=== PATIENT | male | born 1955 | race African-American/Black ===

== ENCOUNTER 2017-01-18 18:57 | Inpatient (IN) ==
[2017-01-18] MEDS ORDERED: SODIUM CHLORIDE 0.9% 1,000 ML IV STA (19:49)
[2017-01-18] MEDS ORDERED: cefTRIAXone 1,000 MG in SODIUM CHLORIDE 0.9% 100 ML IV STA (19:49)
[2017-01-18] MEDS ORDERED: cefTRIAXone 1,000 MG VIAL ONE (19:56)
[2017-01-18] MEDS ORDERED: SODIUM CHLORIDE 0.9% 100 ML IV ONE (19:57)
[2017-01-18 20:02] LABS: Basophils % 0.2 % (0.0-0.8); Eosinophils % 0.3 % (0.00-10.9); Hematocrit 35.5 VOL% (42.0-52.0); Hemoglobin 12.5 GM/DL (14.0-18.0); Immature Granulocytes % 4.3 %; Immature Granulocytes Absolute 0.44 #; Lymphocytes # 1.8 10*3/uL (1.4-4.0); Lymphocytes % 17.6 % (21.2-54.2); Mean Corpuscular HGB Conc 35.2 GM/DL (32-36); Mean Corpuscular Hemoglobin 32 PG (27-34); Mean Platelet Volume 9.2 FL (9.6-12.0); Monocytes # 1.4 10*3/uL (0.11-0.8); Monocytes % 13.4 % (1.7-12.7); Neutrophils # 6.6 10*3/uL (1.4-7.4); Neutrophils % 64.2 % (38.7-73.9); Platelet Count 282 T/CUMM (130-400); Red Cell Distribution Width 14.4 % (9.3-17.3); White Blood Count 10.3 T/CUMM (4-12)
[2017-01-18] MEDS ORDERED: ALBUTEROL/IPRATROPIUM 3 ML NEB RESP TX STA (20:02)
--- NOTE | 2017-01-18 20:07 | XRay Report ---
Portable chest. Indication: Cough and fever and dyspnea. Comparison: November 11, 2016. The heart is enlarged. The pulmonary vasculature is normal. There are scattered areas of atelectasis in the left lung base. The right lung is clear. No pneumothorax or pleural effusion. Degenerative changes of the spinal column and shoulders. Impression: Stable cardiomegaly. Development of areas of atelectasis in the left lung base. PROCEDURE INTERPRETED AT [facility] DEPARTMENT OF RADIOLOGY Final Report Signed by: Dr. Nasrin Tabares
[2017-01-18 20:12] LABS: Osmolality,Calculated 266.2 MOS/KG (273-304); Potassium 3.5 MMOL/L (3.5-5.1)
--- NOTE | 2017-01-18 20:35 | Emergency Department Note ---
Arrival - Arrival Chief Complaint: Upper Respiratory Stated Complaint: breathing and chilles ED Nursing Triage Note: Patient complains of shortness of breath, cough, fever and chills that has been going on for the past week. Denies nausea/vomiting. Denies prior treatment. Hx of HTN and renal failure. Mode of Arrival: Wheelchair Limitations: No Limitations Source: Patient Time Seen by Provider: 01/18/17 19:40 - History of Present Illness HPI Narrative: The patient complains of shortness of breath and cough for the past week or 2. Today he developed fever and chills as well. No rhinorrhea, sore throat, nausea , vomiting or other symptoms. He denies any chest pain. He is a smoker but denies any history of COPD. Allergies/Adverse Reactions: Allergies Allergy/AdvReac Type Severity Reaction Status Date / Time No Known Allergies Allergy Verified 04/08/16 07:12 Home Medications: Home Medications Medication Instructions Recorded Confirmed Type Atorvastatin [Lipitor] 40 mg PO BEDTIME #30 tablet 11/19/15 01/18/17 Rx Metoprolol Tartrate Tab [Lopressor 50 mg PO BID #60 tablet 11/19/15 01/18/17 Rx Tab] Aspirin Tab 325 mg PO QAM 11/11/16 01/18/17 History Hydrocodone/Acetaminophen [[place] 1 each PO Q6HR PRN #60 tablet 11/11/16 Rx 10-325 Tablet] Isosorbide Mononitrate [Isosorbide 30 mg PO QAM 11/11/16 01/18/17 History Mononitrate ER] Losartan Potassium 50 mg PO BID 11/11/16 01/18/17 History Nitroglycerin Sl Tab [Nitrostat] 0.4 mg SL Q5M PRN 11/11/16 01/18/17 History Pantoprazole Tab [Protonix Tab] 40 mg PO QAM 11/11/16 01/18/17 History Dexamethasone Tab [Decadron Tab] 40 mg PO Q7D 01/18/17 01/18/17 History Review of System - Review of System 12 point system: reviewed and no additional remarkable complaints except as stated - Review of System Constitutional: Present: chills, fever, weakness Head/Ears/Nose/Throat: Absent: nasal drainage, sore throat Respiratory: Present: cough, respiratory distress. Absent: wheezing Cardiovascular: Absent: chest pain Gastrointestinal: Absent: abdominal pain, nausea, vomiting Medical,Surgical,& Family Hx - Medical History Cardio: History of: CAD, Hypertension Neurology: History of: TIA Gastrointestinal: History of: Gastrointestinal Bleed Musculoskeletal: History of: Back/Neck Problems, Degenerative Disk Disease Other: History of: Cancer (multiple myeloma) - Surgical History Cardiac Surgeries: Sugical HX of: Cardiac Catheterization Thoracic Surgeries: Patient denies;: Organ Transplant Neurologic Surgeries: Patient denies: Neurologic Surgery Abdominal Surgeries: Patient denies: Abdominal Surgery - Family History Family History: Reports;: Family Diabetes (Mother), Family Hypertension (Mother , Sister) Denies;: Family Cancer Comment Only: Family Heart Disease (Mother, sister) - Social History Smoking Status: Current every day smoker Frequency of Alcohol Use: None Type of Drug Use: None Exam Physical Examination: GENERAL: Alert. No acute distress. HEENT: Normocephalic and atraumatic. There is no nasal drainage. No pharyngeal erythema or exudate. NECK: Normal inspection. Supple. No lymphadenopathy or meningismus. LUNGS: No respiratory distress. Rales in both bases. HEART: Regular rate and rhythm. ABDOMEN: Soft, nontender and nondistended with normoactive bowel sounds. BACK: Normal inspection. SKIN: Color normal. Warm and dry. EXTREMITIES: Nontender. Normal range of motion. No pedal edema. NEUROLOGICAL/PSYCHIATRIC: Alert and oriented -3 with normal mood and affect. Cranial nerves normal. No motor or sensory deficit. Vital Signs: Vital Signs Temperature 102.8 F H 01/18/17 19:11 Pulse Rate 89 01/18/17 20:35 Respiratory Rate 18 01/18/17 20:35 Blood Pressure 145/76 01/18/17 19:11 O2 Sat by Pulse Oximetry 99 01/18/17 20:35 Course - Reevaluation(s) Reevaluation #1: The patient has remained stable in the ER. He feels somewhat better after medications, however, he is still short of breath. His workup shows pneumonia. I discussed patient with the hospitalist service who will see him and admit. Time: 21:55 Results - Labs CBC & BMP: 01/18/17 19:15 01/18/17 19:15 Lab Results: I have reviewed the patients labs - Impressions Chest x-ray was read as areas of atelectasis in the left lung base. Disposition Clinical Impression: Pneumonia Case discussed with: patient Disposition: Still a Patient Condition: Stable Time of Disposition: 22:14
[2017-01-18] MEDS ORDERED: guaiFENesin/DM ER 600-30 MG TABLET PO PRN (22:30)
[2017-01-18] MEDS ORDERED: ACETAMINOPHEN 325 MG TABLET PO PRN (22:30)
[2017-01-18] MEDS ORDERED: ZALEPLON 5 MG CAPSULE PO PRN (22:30)
[2017-01-18] MEDS ORDERED: ONDANSETRON 4 MG/2 ML VIAL IV PRN (22:30)
[2017-01-18] MEDS ORDERED: DOCUSATE SODIUM 100 MG CAPSULE PO PRN (22:30)
[2017-01-18] MEDS ORDERED: ALBUTEROL/IPRATROPIUM 3 ML NEB RESP TX PRN (22:33)
--- NOTE | 2017-01-18 22:43 | Hospitalist History & Physical ---
Assessment and Plan - Time spent with patient Time spent with patient: Greater than 30 minutes (1) Pneumonia Status: Acute Assessment and plan: Admit to inpatient. Start Levaquin. Follow-up blood and sputum cultures. Lactic acid pending. Duo nebs and Mucinex added. Continue home medications. Further recommendations will depend on his response to therapy Current Visit: Yes Qualifiers: Pneumonia type: due to unspecified organism Laterality: bilateral Lung location: lower lobe of lung Qualified Code(s): J18.9 - Pneumonia, unspecified organism (2) IgG multiple myeloma Status: Chronic Assessment and plan: Consult Dr. Sanon Continue dexamethasone 40 mg weekly Current Visit: No (3) Hypertension Status: Chronic Assessment and plan: Continue home medications Current Visit: No Qualifiers: Hypertension type: essential hypertension Qualified Code(s): I10 - Essential (primary) hypertension (4) Coronary artery disease Status: Chronic Assessment and plan: Continue home medications Current Visit: No History of Present Illness Chief complaint: fever and chills with non productive cough History of present illness: Mr. Baird is a 61 year old male with a history of IgG kappa chain myeloma treated with Velcade and dexamethasone, presents to the emergency department with a complaint of fever and chills that began today and a nonproductive cough. The patient has felt ill over the last week but developed fever and chills today. He is accompanied by his and daughter in the emergency department. He reports some shortness of breath and mild discomfort in the lower parts of his chest. His chest x-ray in the emergency department reveals some atelectasis with infiltrate in the left base as well as a possible developing infiltrate in the right base. He denies any sick contacts or recent hospitalizations. No recent antibiotic use. He sees Dr. Sanon every 2 weeks for chemotherapy with Velcade. He denies any pain at this time. No nausea vomiting or diarrhea, no abdominal pain or other symptoms. Home medications were reviewed and reconciled. He is a full code. Home Medications Medication Instructions Recorded Confirmed Type Atorvastatin [Lipitor] 40 mg PO BEDTIME #30 tablet 11/19/15 01/18/17 Rx Metoprolol Tartrate Tab [Lopressor 50 mg PO BID #60 tablet 11/19/15 01/18/17 Rx Tab] Aspirin Tab 325 mg PO QAM 11/11/16 01/18/17 History Hydrocodone/Acetaminophen [[place] 1 each PO Q6HR PRN #60 tablet 11/11/16 Rx 10-325 Tablet] Isosorbide Mononitrate [Isosorbide 30 mg PO QAM 11/11/16 01/18/17 History Mononitrate ER] Losartan Potassium 50 mg PO BID 11/11/16 01/18/17 History Nitroglycerin Sl Tab [Nitrostat] 0.4 mg SL Q5M PRN 11/11/16 01/18/17 History Pantoprazole Tab [Protonix Tab] 40 mg PO QAM 11/11/16 01/18/17 History Dexamethasone Tab [Decadron Tab] 40 mg PO Q7D 01/18/17 01/18/17 History Allergies Allergy/AdvReac Type Severity Reaction Status Date / Time No Known Allergies Allergy Verified 04/08/16 07:12 Medical,Surgical,& Family Hx - Medical History Cardio: History of: CAD, Hypertension Neurology: History of: TIA Gastrointestinal: History of: Gastrointestinal Bleed Musculoskeletal: History of: Back/Neck Problems, Degenerative Disk Disease Hematology: History of: Hematologic Cancer (IgG kappa chain myeloma) Other: History of: Cancer (multiple myeloma) - Surgical History Cardiac Surgeries: Sugical HX of: Cardiac Catheterization Thoracic Surgeries: Patient denies;: Organ Transplant Neurologic Surgeries: Patient denies: Neurologic Surgery Abdominal Surgeries: Patient denies: Abdominal Surgery - Family History Family History: Reports;: Family Diabetes (Mother), Family Hypertension (Mother , Sister) Denies;: Family Cancer Comment Only: Family Heart Disease (Mother, sister) - Social History Smoking Status: Current every day smoker Have you smoked in the last 12 months: Yes Time spent discussing smoking cessation with patient: 3 to 10 minutes (4 min) Frequency of Alcohol Use: None Type of Drug Use: None Marital Status: Lives With:: Spouse Functional capacity: independent ambulation 12 point system: reviewed and no additional remarkable complaints except as stated - Constitutional Constitutional: Present: as per HPI, chills, fever(s), malaise - Respiratory Respiratory: Present: as per HPI, cough, dyspnea Exam - Constitutional Vitals: Period Temp Pulse Resp BP Sys/[place] Pulse Ox Last 24 Hr 102.8 F-102.8 F 89-99 18-22 145-145/76-76 95-99 Exam: Constitutional System: No distress. No tremulousness. Head: Normocephalic, atraumatic. Ears, Nose and Throat System: No pain or tenderness. No epistaxis or discharge Eyes System: Pupils equal, round, and reactive. Extraocular muscles intact. Neck: Supple, without adenopathy, No jugular venous distention. No thyromegaly, neck mass, or prior surgery apparent. Respiratory System: Chest rhonchi bilateral lower lobes to auscultation. Cardiovascular System: Heart with regular rate and rhythm. No murmur. GI System: Abdomen soft, nontender. Normo active bowel sounds present. Musculoskeletal System: limbs with no pedal edema. Full distal pulses. Normal capillary refill. Neurological System: No discernable sensory deficit. No aphasia Psychiatric System: Conversation is rational Results - Labs CBC & BMP: 01/18/17 19:15 01/18/17 19:15 Lab Results: I have reviewed the past 24 hour labs - Diagnostic Findings Procedure: Chest x-ray: image reviewed by me, report reviewed by me
[2017-01-18 22:50] LABS: Apearance,Urine CLEAR (Clear); Bilirubin,Urine Negative (Negative); Blood, Urine Small mg/dL (Negative); Glucose,Urine (UA) Negative (Negative); Ketones,Urine Negative (Negative); Mucus,Urine Occasional /LPF (Occasional); Nitrite,Urine Negative (Negative); Protein,Urine Negative; RBC,Urine 1 /HPF (0-4); Squamous Epithelial Cell,Urine Occasional /HPF (0-10); Urine Color Yellow (Yellow); Urine Specific Gravity 1.009 (1.001-1.035); Urine Urobilinogen < 2.0 EU/DL (0.2-1.0); WBC,Urine 40 /HPF (0-6)
[2017-01-18] MEDS: SODIUM CHLORIDE 0.9% 1,000 ML IV SCH (23:46)
[2017-01-18] MEDS ORDERED: NITROGLYCERIN SL 0.4 MG TABLET SL PRN (23:46)
[2017-01-18] MEDS: LEVOFLOXACIN INJ 750 MG in PREMIX 1 EACH IV SCH (23:47)
[2017-01-19] MEDS ORDERED: PNEUMOCOCCAL VACCINE (13 VALENT) 0.5 ML SYRINGE IM ONE (00:01)
[2017-01-19] MEDS: ALBUTEROL/IPRATROPIUM 3 ML NEB RESP TX SCH ×4 (00:25→19:44)
[2017-01-19 06:58] LABS: Basophils % 0.5 % (0.0-0.8); Eosinophils % 0.1 % (0.00-10.9); Hematocrit 37.3 VOL% (42.0-52.0); Hemoglobin 12.9 GM/DL (14.0-18.0); Immature Granulocytes % 3.6 %; Immature Granulocytes Absolute 0.32 #; Lymphocytes # 2.3 10*3/uL (1.4-4.0); Mean Corpuscular HGB Conc 34.6 GM/DL (32-36); Mean Corpuscular Hemoglobin 32 PG (27-34); Mean Corpuscular Volume 91.6 FL (87-102); Mean Platelet Volume 9.4 FL (9.6-12.0); Monocytes # 1.3 10*3/uL (0.11-0.8); Monocytes % 14.7 % (1.7-12.7); Neutrophils # 4.9 10*3/uL (1.4-7.4); Neutrophils % 55.1 % (38.7-73.9); Platelet Count 287 T/CUMM (130-400); Red Blood Count 4.07 MC/CUMM (3.8-5.5); Red Cell Distribution Width 14.6 % (9.3-17.3); White Blood Count 8.9 T/CUMM (4-12)
[2017-01-19 07:32] LABS: Calcium 8.2 MG/DL (8.5-10.1); Osmolality,Calculated 273.7 MOS/KG (273-304); Potassium 4.3 MMOL/L (3.5-5.1)
--- NOTE | 2017-01-19 08:32 | Hospitalist Progress Note ---
Assessment and Plan (1) IgG multiple myeloma Status: Chronic Assessment and plan: On active treatment with dexamethasone and Velcade Current Visit: No (2) Pneumonia Status: Acute Current Visit: Yes Qualifiers: Pneumonia type: due to unspecified organism Laterality: bilateral Lung location: lower lobe of lung Qualified Code(s): J18.9 - Pneumonia, unspecified organism (3) CAD (coronary artery disease) Status: Chronic Assessment and plan: Successful percutaneous intervention to the circumflex and obtuse marginal coronary arteries October 2015 Current Visit: No Qualifiers: Coronary Disease-Associated Artery/Lesion type: [place] artery [place] vs. transplanted heart: [place] heart Associated angina: without angina Qualified Code(s): I25.10 - Atherosclerotic heart disease of [place] coronary artery without angina pectoris Hospitalist: Subjective Interval history: 61-year-old male with an IgG kappa multiple myeloma on active treatment presented the emergency room with complaints of fever and chills with a nonproductive cough. Chest x-ray demonstrates linear atelectatic changes in the left base with no consolidative infiltrate. Overnight the patient was afebrile with stable vital signs. His white count remains normal his cough persists. Exam - Constitutional Vitals: Period Temp Pulse Resp BP Sys/[place] Pulse Ox Last 24 Hr 99.0 F-102.8 F 74-99 17-22 145-162/76-99 95-100 General appearance: over weight - Respiratory Respiratory exam: Present: clear to auscultation bilaterally. Absent: rales, rhonchi, wheezes - Cardiovascular Cardiovascular exam: Present: regular rate and rhythm - GI/Abdominal GI/Abdominal exam: Present: normal bowel sounds - Extremities Exam Extremities exam: Absent: edema - Neurological Exam Neurological exam: Present: alert, oriented X3 Results - Labs CBC & BMP: 01/19/17 05:41 01/19/17 05:41 - Diagnostic Findings Procedure: Chest x-ray: image reviewed by me (Discoid atelectasis left base)
[2017-01-19] MEDS ORDERED: DEXAMETHASONE 4 MG TABLET PO SCH (09:00)
[2017-01-19] MEDS: ASPIRIN 325 MG TABLET PO SCH (09:22)
[2017-01-19] MEDS: METOPROLOL TARTRATE 50 MG TABLET PO SCH ×2 (09:22→21:05)
[2017-01-19] MEDS: ISOSORBIDE MONONITRATE 30 MG TABLET PO SCH (09:22)
[2017-01-19] MEDS: PANTOPRAZOLE 40 MG TABLET PO SCH (09:22)
[2017-01-19] MEDS: LOSARTAN 50 MG TABLET PO SCH ×2 (09:22→21:05)
[2017-01-19] MEDS: ENOXAPARIN 40 MG/0.4 ML SYRINGE SUBCUT SCH (09:22)
--- NOTE | 2017-01-19 11:47 | Oncology Consult Note ---
History of Present Illness Chief complaint: Myeloma History of present illness: Mr. Baird is a 61 year old male who has IgG kappa myeloma first diagnosed in September 2015 at which time he had an IgG level of 5370 with a kappa free light chain level of 260. His most recent protein studies done at my office were performed on December 27, 2016 at which time he had an M spike of 1 g/dL or 13.1% with an IgG level of 1640 and a kappa free light chain level of 12.33 mg/dL. Unfortunately he lost insurance for some time and had been off chemotherapy for several months earlier this year before regaining any count of insurance coverage. He is currently on dexamethasone 40 mg weekly along with Velcade 2.5 mg subcu weekly, which was only started on January 03, 2017. He continues to have significant bone pain including back pain and rib pain. He has not had Zometa in quite some time and I am going to go ahead and order it while he is here. I am also going to recheck protein studies while he is here. He was admitted at this time with pneumonia and has been started on Levaquin. Past medical history: No known allergies. He has a history of hypertension as well as degenerative disc disease, coronary artery disease, TIA, acute myocardial infarct, chronic renal failure that has resolved, hyperlipidemia and spinal compression fractures. Family history is positive for cancer of unknown type in a brother and in his father. His father has diabetes mellitus and so does his mother. His mother has hypertension and coronary artery disease. One sister has renal disease and coronary artery disease and hypertension. ROS Gen.: Positive for fatigue. Negative for weight loss or weight gain. Negative for fever. Eyes: No history of chronic disease, infections or visual loss. ENT: No history of chronic infections, epistaxis, chronic sore throat Lungs: Positive for hacking cough. No history of asthma, emphysema, hemoptysis , chronic pleurisy or long-term or chronic infections Cardiovascular: No history of recent angina or arrhythmias or cardiac events. GI: No history of upper or lower GI bleeding, melena, dysphagia, odynophagia, liver disease, gallbladder disease or pancreatic disease. : No history of kidney stones, chronic kidney infections or hematuria. Musculoskeletal: Positive for back pain, primarily lumbar and also for bone and joint aches and pains. Neurologic: No history of seizures, convulsions or paralysis. Psychiatric: No history of chronic psychiatric illness or psychiatric medications. Lymphatic: No history of significant or long-term lymphadenopathy Hematologic: Positive for anemia and leukopenia. Negative for lymphadenopathy. Skin: No history of chronic skin infections or rashes or significant skin lesions. Physical examination: General: He appears to be acutely ill and tachypneic. Eyes: Lids and conjunctive are normal. ENT: His oral mucosa and pharynx are normal. His hearing is normal. Neck: His trachea is midline and he has no neck masses. Lungs: He has scattered rales, more on the left side than the right. He has chest wall tenderness to palpation. Cardiovascular: His heart rhythm is regular without murmur, gallop or rub. There is no jugular venous distention, clubbing or cyanosis. Abdomen: He has mild generalized abdominal tenderness but most of it is in the area just below his rib cage. Musculoskeletal: Decreased range of motion in his back. Generalized bone tenderness. Neurologic: Cranial nerves II through XII are intact. The no focal neurologic deficits. Nodes: There is no submandibular, cervical, supraclavicular or axillary adenopathy. Psychiatric: He is oriented to time, place, person and situation with normal mood and affect. Impression: IgG kappa myeloma undergoing active treatment. White cell count on this admission is 10,300 with a very minimal anemia with a hemoglobin of 12.5. The platelet count is normal 282,000. His serum creatinine is 1.3, which is normal. Serum calcium is 8.0. He has not had a comprehensive metabolic profile. This would be a prudent thing to do to assess anyone with a a malignancy on chemotherapy so I am going to go ahead and order one. I will follow him with you. Home Medications Medication Instructions Recorded Confirmed Type Atorvastatin [Lipitor] 40 mg PO BEDTIME #30 tablet 11/19/15 01/19/17 Rx Metoprolol Tartrate Tab [Lopressor 50 mg PO BID #60 tablet 11/19/15 01/19/17 Rx Tab] Aspirin Tab 325 mg PO QAM 11/11/16 01/19/17 History Hydrocodone/Acetaminophen [[place] 1 each PO Q6HR PRN #60 tablet 11/11/16 Rx 10-325 Tablet] Isosorbide Mononitrate [Isosorbide 30 mg PO DAILY 11/11/16 01/19/17 History Mononitrate ER] Losartan Potassium 50 mg PO BID 11/11/16 01/19/17 History Nitroglycerin Sl Tab [Nitrostat] 0.4 mg SL Q5M PRN 11/11/16 01/19/17 History Pantoprazole Tab [Protonix Tab] 40 mg PO QAM 11/11/16 01/19/17 History Dexamethasone Tab [Decadron Tab] 40 mg PO Q7D 01/18/17 01/19/17 History Allergies Allergy/AdvReac Type Severity Reaction Status Date / Time No Known Allergies Allergy Verified 04/08/16 07:12 Medical,Surgical,& Family Hx - Medical History Cardio: History of: CAD, Hypertension Neurology: History of: TIA Gastrointestinal: History of: Gastrointestinal Bleed Musculoskeletal: History of: Back/Neck Problems, Degenerative Disk Disease Hematology: History of: Hematologic Cancer (IgG kappa chain myeloma) Other: History of: Cancer (multiple myeloma) - Surgical History Cardiac Surgeries: Sugical HX of: Cardiac Catheterization Thoracic Surgeries: Patient denies;: Organ Transplant Neurologic Surgeries: Patient denies: Neurologic Surgery Abdominal Surgeries: Patient denies: Abdominal Surgery - Family History Family History: Reports;: Family Diabetes (Mother), Family Hypertension (Mother , Sister) Denies;: Family Cancer Comment Only: Family Heart Disease (Mother, sister) - Social History Smoking Status: Current every day smoker Frequency of Alcohol Use: None Type of Drug Use: None Exam - Constitutional Vitals: Period Temp Pulse Resp BP Sys/[place] Pulse Ox Last 24 Hr 99.0 F-102.8 F 6-99 16-22 145-162/76-99 95-100 Results - Labs CBC & BMP: 01/19/17 05:41 01/19/17 05:41
[2017-01-19] MEDS ORDERED: ZOLEDRONIC ACID 4 MG in PREMIX 1 EACH IV ONE (11:55)
[2017-01-19 12:27] LABS: Total Protein 6.6 G/DL (6.4-8.3)
[2017-01-19] MEDS: ATORVASTATIN 40 MG TABLET PO SCH (21:05)
[2017-01-19] MEDS: LEVOFLOXACIN INJ 750 MG in PREMIX 1 EACH IV SCH (23:08)
[2017-01-19] MEDS: SODIUM CHLORIDE 0.9% 1,000 ML IV SCH (23:14)
[2017-01-20] MEDS: ALBUTEROL/IPRATROPIUM 3 ML NEB RESP TX SCH ×4 (01:24→20:43)
[2017-01-20 04:22] LABS: Immunoglobulin A (Chem) 179 MG/DL (70-400); Immunoglobulin G (Chem) 1210 MG/DL (700-1600); Immunoglobulin M (Chem) 37 MG/DL (40-230); Total Protein (Chem) 6.6 G/DL (6.4-8.3)
[2017-01-20] MEDS: SODIUM CHLORIDE 0.9% 1,000 ML IV SCH (05:27)
[2017-01-20 06:52] LABS: Albumin (SPE) 3.8 G/DL (3.2-5.3); Albumin (SPE) Rel % 57.9 %; Alpha 1 (SPE) 0.2 G/DL (0.1-0.4); Alpha 1 (SPE) Rel % 3.1 %; Alpha 2 (SPE) 0.7 G/DL (0.4-1.0); Alpha 2 (SPE) Rel % 10.5 %; Beta (SPE) 0.8 G/DL (0.5-1.1); Beta (SPE) Rel % 11.3 %; Gamma (SPE) 1.1 G/DL (0.7-1.7)
[2017-01-20 06:53] LABS: Gamma (SPE) Rel % 17.2 %
[2017-01-20 07:22] LABS: Bilirubin,Total 0.5 MG/DL (0.2-1.0); Calcium 8.5 MG/DL (8.5-10.1); Osmolality,Calculated 277.5 MOS/KG (273-304); Potassium 4.1 MMOL/L (3.5-5.1); Total Protein 6.5 G/DL (6.4-8.3)
--- NOTE | 2017-01-20 08:15 | Oncology Progress Note ---
Oncology Subjective PN Interval history: Patient with IgG kappa myeloma admitted with pneumonia. He received Zometa yesterday. He is on antibiotics for pneumonia. He has significant bone pain from the myeloma. Protein studies have been done in some of the results are pending. He has an IgG kappa monoclonal spike and myeloma. The patient has an IgG level of 1210 with an IgA of 179 and a low IgM of 37. The free light chain levels in the serum are pending. The patient's M spike 0.6 g/dL or 9.5%. He continues to have back pain and chest wall pain. I am not surprised. His back pain may never completely clear. It is the most common complaint among patients who have myeloma. I have instructed him to come by my office next week. He already has an appointment to continue chemotherapy at that time and he could go home anytime that you are ready. I am stonework tracer this weekend and I will continue to check on him. On physical examination he appears somewhat acutely ill as well as chronically ill. Lids and conjunctive are normal. His neck is normal and his trachea is midline. His breath sounds are slightly coarse and he has a few scattered dependent rales but no loud wheezing or evidence of extensive pulmonary congestion. Heart sounds are normal. Cranial nerves II through XII are intact. There are no focal neurologic deficits. Exam - Constitutional Vitals: Period Temp Pulse Resp BP Sys/[place] Pulse Ox Last 24 Hr 97.1 F-98.1 F 6-70 16-20 130-144/74-85 92-99 Results - Labs CBC & BMP: 01/19/17 05:41 01/20/17 06:24
--- NOTE | 2017-01-20 08:21 | Hospitalist Progress Note ---
Assessment and Plan (1) IgG multiple myeloma Status: Chronic Assessment and plan: On active treatment with dexamethasone and Velcade Current Visit: No (2) Pneumonia Status: Acute Assessment and plan: Possible viral bronchitis rather than bacterial pneumonia Current Visit: Yes Qualifiers: Pneumonia type: due to unspecified organism Laterality: bilateral Lung location: lower lobe of lung Qualified Code(s): J18.9 - Pneumonia, unspecified organism (3) CAD (coronary artery disease) Status: Chronic Assessment and plan: Successful percutaneous intervention to the circumflex and obtuse marginal coronary arteries October 2015 Current Visit: No Qualifiers: Coronary Disease-Associated Artery/Lesion type: [place] artery [place] vs. transplanted heart: [place] heart Associated angina: without angina Qualified Code(s): I25.10 - Atherosclerotic heart disease of [place] coronary artery without angina pectoris Hospitalist: Subjective Interval history: 61-year-old male with an IgG kappa multiple myeloma on treatment and presented emergency room with complaints of fever chills and a nonproductive cough. His chest x-ray demonstrates linear basilar atelectasis predominantly at the left base with no consolidation. He continues to be afebrile and states that his breathing is better. Vital signs were stable overnight. Exam - Constitutional Vitals: Period Temp Pulse Resp BP Sys/[place] Pulse Ox Last 24 Hr 97.1 F-98.1 F 6-70 16-20 130-144/74-85 92-99 General appearance: over weight - Respiratory Respiratory exam: Present: wheezes (New this a.m., minimal at forced expiration) . Absent: rales, rhonchi - Cardiovascular Cardiovascular exam: Present: regular rate and rhythm - GI/Abdominal GI/Abdominal exam: Present: normal bowel sounds - Extremities Exam Extremities exam: Absent: edema - Neurological Exam Neurological exam: Present: alert, oriented X3 Results - Labs CBC & BMP: 01/19/17 05:41 01/20/17 06:24 Labs: Liver panel was normal Initial pyuria on urinalysis thus far shown no growth.
[2017-01-20] MEDS: ISOSORBIDE MONONITRATE 30 MG TABLET PO SCH (08:56)
[2017-01-20] MEDS: PANTOPRAZOLE 40 MG TABLET PO SCH (08:56)
[2017-01-20] MEDS: LOSARTAN 50 MG TABLET PO SCH ×2 (08:56→20:02)
[2017-01-20] MEDS: ASPIRIN 325 MG TABLET PO SCH (08:56)
[2017-01-20] MEDS: METOPROLOL TARTRATE 50 MG TABLET PO SCH ×2 (08:56→20:02)
[2017-01-20] MEDS: ENOXAPARIN 40 MG/0.4 ML SYRINGE SUBCUT SCH (08:57)
[2017-01-20] MEDS: LEVOFLOXACIN 750 MG TABLET PO SCH (09:21)
[2017-01-20] MEDS: ATORVASTATIN 40 MG TABLET PO SCH (20:03)
[2017-01-21] MEDS: ALBUTEROL/IPRATROPIUM 3 ML NEB RESP TX SCH ×2 (01:17→07:11)
[2017-01-21 07:41] VITALS: BP 162/100
[2017-01-21] MEDS: LEVOFLOXACIN 750 MG TABLET PO SCH (09:20)
[2017-01-21] MEDS: ASPIRIN 325 MG TABLET PO SCH (09:20)
[2017-01-21] MEDS: ISOSORBIDE MONONITRATE 30 MG TABLET PO SCH (09:21)
[2017-01-21] MEDS: LOSARTAN 50 MG TABLET PO SCH (09:21)
[2017-01-21] MEDS: METOPROLOL TARTRATE 50 MG TABLET PO SCH (09:21)
[2017-01-21] MEDS: ENOXAPARIN 40 MG/0.4 ML SYRINGE SUBCUT SCH (09:21)
[2017-01-21] MEDS: PANTOPRAZOLE 40 MG TABLET PO SCH (09:21)
--- NOTE | 2017-01-21 09:52 | Oncology Progress Note ---
Oncology Subjective PN Interval history: Mr. Baird is having less back pain today. He is on treatment for myeloma and is responding well. He was admitted with pneumonia. He has normal renal function with a serum creatinine of 1.0. His serum calcium is also normal at 8.5 with a slightly low serum albumin of 3.0. From my standpoint, he can go home anytime. He is scheduled for further outpatient chemotherapy for his myeloma on January 24. He is already been instructed to keep that appointment. During this hospital stay, he received Zometa 4 mg IV which actually prevents myeloma growth as well as preventing pathologic fractures. He is fully oriented and alert and does not appear to be in as much pain today is on admission. Exam - Constitutional Vitals: Period Temp Pulse Resp BP Sys/[place] Pulse Ox Last 24 Hr 97.0 F-99.0 F 63-87 16-20 131-162/80-100 94-100 Results - Labs CBC & BMP: 01/19/17 05:41 01/20/17 06:24
--- NOTE | 2017-01-21 11:42 | Discharge Summary ---
Hospital Course - Hospital Course Hospital Course: 61-year-old man with history of multiple myeloma treatment followed by oncology admitted to the ER for suspected pneumonia, he was treated as such with breathing treatment IV antibiotic. He did show improvement, cultures have all came back negative. On the day of discharge, he was back to his usual state of health, shortness of breath and wheezing had improved significantly. No fevers recorded. During his stay, oncology was consulted to help in his care. They have cleared him for discharge and will follow up with him as outpatient. Rest of his hospital stay was uneventful - Time spent with patient Time with patient DS: Greater than 30 minutes (Taken in coordinating post hospital care and documentation) Specialty Discharge - Follow Up or Referrals Discharge Plan - Discharge Data Disposition: Disch To Home/Self Care Condition at Discharge: Stable - Discharge Medications New Levofloxacin Tab [Levaquin Tab] 750 mg PO DAILY #5 tablet guaiFENesin/DM ER 600-30 [Mucinex Dm 600-30 MG] 1 tablet PO BID PRN #14 tablet PRN Reason: Congestion Continue Atorvastatin [Lipitor] 40 mg PO BEDTIME #30 tablet Metoprolol Tartrate Tab [Lopressor Tab] 50 mg PO BID #60 tablet Pantoprazole Tab [Protonix Tab] 40 mg PO QAM Nitroglycerin Sl Tab [Nitrostat] 0.4 mg SL Q5M PRN PRN Reason: Chest Pain Aspirin Tab 325 mg PO QAM Losartan Potassium 50 mg PO BID Dexamethasone Tab [Decadron Tab] 40 mg PO Q7D Isosorbide Mononitrate [Isosorbide Mononitrate ER] 30 mg PO DAILY Hydrocodone/Acetaminophen [[place] 10-325 Tablet] 1 each PO Q6HR PRN #60 tablet PRN Reason: myeloma pain - Follow Up or Referral - Forms/Instructions Instructions: Viral Pneumonia (GEN) Additional Discharge Instructions: Follow-up with his PCP in 1-2 weeks. Follow- up with oncology as previously scheduled. Exam - Constitutional Vitals: Period Temp Pulse Resp BP Sys/[place] Pulse Ox Last 24 Hr 97.0 F-99.0 F 63-87 16-20 131-162/80-100 94-100 Discharge Results Procedures and tests throughout hospitalization: Pending Orders 01/18/17 19:29 Blood Culture Stat 01/18/17 22:33 Sputum Culture and Gram Stain Routine Labs on day of discharge: Labs from last 24 hours 01/18/17 22:48 Ur L.pneumophila Ag Negative Ur Strep pneumoniae Ag Negative Preliminary micro results at discharge 01/18/17 19:29 Blood Culture - Preliminary Blood No growth at 1 day 01/18/17 19:29 Blood Culture - Preliminary Blood No growth at 1 day DS: Provider Date of admission: 01/18/17 22:31 Primary care physician: . Kelly PCP Attending physician on admission: Felecia Flores MD Consults: 01/18/17 22:30 Consult to Physician [CONS] Routine Comment: myeloma and pneumonia Consulting Provider: Aiden Driscoll Person Notified: [email or web address] Date Notified: 01/19/17 Time Notified: 10:47 Consult Notification Comment: DR. DRISCOLL NURSE NURY CALL SAID HE WOULD SEE THIS PATIENT ON TOMORROW 01-2001/18/17 22:32 Consult to Case Mgmt/Social Srvs [CONS] Routine Reason for Case Mgmt/Social Srvs: Discharge Planning 01/19/17 00:01 Consult to Dietitian [CONS] Routine Reason for Dietitian: Dietary Consult Discharging clinician: Toney Burgess MD
[2017-01-22] MEDS ORDERED: DEXAMETHASONE 4 MG TABLET PO SCH (09:00)
== END 2017-01-21 13:00 | disposition home or self-care (01) | DRG 139 ==
LOC: N.ED 18:57 → N.EDINP 22:31 → SUATTDRO 22:31 → N.5E 22:44
PROVIDERS: ADMIT Family Medicine; ATTEND Internal Medicine

== ENCOUNTER 2018-08-30 10:08 | Inpatient (IN) ==
[2018-08-30] MEDS ORDERED: ONDANSETRON 4 MG/2 ML VIAL IV STA (10:54)
[2018-08-30] MEDS ORDERED: HYDROmorphone 2 MG/1 ML VIAL IV STA (10:54)
[2018-08-30] MEDS ORDERED: SODIUM CHLORIDE 0.9% 1,000 ML IV STA (10:54)
[2018-08-30 11:31] LABS: Basophils % 0.3 % (0.0-0.8); Eosinophils % 0.2 % (0.00-10.9); Hematocrit 37.5 VOL% (42.0-52.0); Hemoglobin 12.3 GM/DL (14.0-18.0); Immature Granulocytes % 0.6 %; Immature Granulocytes Absolute 0.09 #; Lymphocytes # 2.5 10*3/uL (1.4-4.0); Lymphocytes % 17.3 % (21.2-54.2); Mean Corpuscular HGB Conc 32.8 GM/DL (32-36); Mean Corpuscular Volume 96.2 FL (87-102); Mean Platelet Volume 8.8 FL (9.6-12.0); Monocytes % 18.5 % (1.7-12.7); Neutrophils % 63.1 % (38.7-73.9); Platelet Count 347 T/CUMM (130-400); Red Cell Distribution Width 14.6 % (9.3-17.3); White Blood Count 14.4 T/CUMM (4-12)
[2018-08-30 11:53] LABS: Eosinophils 2 % (0-10); Hypochromasia 1+; Lymphocytes 15 % (20-55); Ovalocytes Slight; Platelet Estimate Adequate; Segmented Neutrophils 60 % (50-85); Total Cells Counted 100
[2018-08-30 11:55] LABS: Albumin 3.1 G/DL (3.4-5.0); Bilirubin,Total 1.2 MG/DL (0.2-1.0); Calcium 8.6 MG/DL (8.5-10.1); Osmolality,Calculated 265.4 MOS/KG (273-304); Total Protein 7.1 G/DL (6.4-8.3)
[2018-08-30 12:13] LABS: Apearance,Urine Slightly Hazy (Clear); Bilirubin,Urine Negative (Negative); Blood, Urine Small mg/dL (Negative); Glucose,Urine (UA) Negative (Negative); Ketones,Urine 5 mg/dL (Negative); Mucus,Urine Few /LPF (Occasional); Nitrite,Urine Negative (Negative); Protein,Urine 30 MG/DL; RBC,Urine 15 /HPF (0-4); Sperm,Urine Occasional /HPF (Negative); Squamous Epithelial Cell,Urine Many /HPF (0-10); Urine Color Amber (Yellow); Urine Specific Gravity 1.048 (1.001-1.035); WBC,Urine 19 /HPF (0-6)
[2018-08-30] MEDS ORDERED: PIPERACILLIN/TAZOBACTAM 3,375 MG in SODIUM CHLORIDE 0.9% 100 ML IV STA (12:15)
[2018-08-30] MEDS ORDERED: ONDANSETRON 4 MG/2 ML VIAL IV PRN (13:14)
[2018-08-30] MEDS ORDERED: PROMETHAZINE 25 MG/1 ML VIAL IM PRN (13:14)
[2018-08-30] MEDS ORDERED: NITROGLYCERIN SL 0.4 MG TABLET SL PRN (13:15)
[2018-08-30] MEDS: CIPROFLOXACIN INJ 400 MG in PREMIX 1 EACH IV SCH (17:15)
[2018-08-30] MEDS: glyBURIDE 5 MG TABLET PO SCH (17:15)
[2018-08-30] MEDS: metFORMIN 500 MG TABLET PO SCH (17:15)
[2018-08-30] MEDS: SODIUM CHLORIDE 0.45% 1,000 ML IV SCH (17:15)
[2018-08-30] MEDS: PROCHLORPERAZINE 10 MG TABLET PO SCH (19:23)
[2018-08-30] MEDS: metroNIDAZOLE INJ 500 MG in PREMIX 1 EACH IV SCH (19:31)
[2018-08-30] MEDS: HEPARIN 5,000 UNIT/1 ML VIAL SUBCUT SCH (21:59)
[2018-08-30] MEDS: METOPROLOL TARTRATE 50 MG TABLET PO SCH (21:59)
[2018-08-30] MEDS: ATORVASTATIN 40 MG TABLET PO SCH (21:59)
[2018-08-30] MEDS: LOSARTAN 50 MG TABLET PO SCH (21:59)
[2018-08-31] MEDS: PROCHLORPERAZINE 10 MG TABLET PO SCH ×5 (00:05→23:52)
[2018-08-31] MEDS: metroNIDAZOLE INJ 500 MG in PREMIX 1 EACH IV SCH ×4 (02:14→19:58)
[2018-08-31 04:48] LABS: Basophils # 0.1 10*3/uL (0.0-0.2); Basophils % 0.4 % (0.0-0.8); Eosinophils # 0.1 10*3/uL (0.0-0.87); Eosinophils % 0.7 % (0.00-10.9); Hematocrit 36.3 VOL% (42.0-52.0); Hemoglobin 11.9 GM/DL (14.0-18.0); Immature Granulocytes % 0.7 %; Immature Granulocytes Absolute 0.12 #; Lymphocytes # 4.8 10*3/uL (1.4-4.0); Lymphocytes % 28.9 % (21.2-54.2); Mean Corpuscular HGB Conc 32.8 GM/DL (32-36); Neutrophils % 49.3 % (38.7-73.9); Platelet Count 321 T/CUMM (130-400); Red Blood Count 3.78 MC/CUMM (3.8-5.5); Red Cell Distribution Width 14.4 % (9.3-17.3); White Blood Count 16.7 T/CUMM (4-12)
[2018-08-31 05:07] LABS: Albumin 3.1 G/DL (3.4-5.0); Bilirubin,Total 0.8 MG/DL (0.2-1.0); Calcium 7.6 MG/DL (8.5-10.1); Osmolality,Calculated 267.8 MOS/KG (273-304); Total Protein 6.8 G/DL (6.4-8.3)
[2018-08-31] MEDS: CIPROFLOXACIN INJ 400 MG in PREMIX 1 EACH IV SCH ×2 (05:21→17:32)
[2018-08-31] MEDS: HEPARIN 5,000 UNIT/1 ML VIAL SUBCUT SCH ×3 (05:22→21:43)
[2018-08-31 06:04] LABS: Eosinophils 1 % (0-10); Lymphocytes 30 % (20-55); Platelet Estimate Normal; Polychromasia Slight; Segmented Neutrophils 65 % (50-85); Total Cells Counted 100
[2018-08-31] MEDS: metFORMIN 500 MG TABLET PO SCH (07:50)
[2018-08-31] MEDS: SODIUM CHLORIDE 0.45% 1,000 ML IV SCH ×2 (07:50→08:49)
[2018-08-31] MEDS: glyBURIDE 5 MG TABLET PO SCH (07:50)
[2018-08-31] MEDS: ISOSORBIDE MONONITRATE 30 MG TABLET PO SCH (08:53)
[2018-08-31] MEDS: LOSARTAN 50 MG TABLET PO SCH ×2 (08:53→20:20)
[2018-08-31] MEDS: METOPROLOL TARTRATE 50 MG TABLET PO SCH ×2 (08:53→20:19)
[2018-08-31] MEDS: CITALOPRAM 20 MG TABLET PO SCH (08:53)
[2018-08-31] MEDS: ASPIRIN EC 81 MG TABLET PO SCH (08:54)
[2018-08-31] MEDS: PANTOPRAZOLE 40 MG VIAL IV SCH (08:54)
[2018-08-31] MEDS ORDERED: PANTOPRAZOLE 40 MG TABLET PO SCH (09:00)
[2018-08-31] MEDS: NON-FORMULARY MEDICATION (Lenalidomide [Revlimid] 25 MG) PO SCH (09:01)
[2018-08-31] MEDS ORDERED: fentaNYL 12 MCG/HR PATCH TRANSDERM SCH (10:30)
[2018-08-31 11:53] LABS: Total Protein 6.2 G/DL (6.4-8.3)
[2018-08-31] MEDS ORDERED: DEXTROSE 50% 25 GM/50 ML SYRINGE IV PRN (12:04)
[2018-08-31] MEDS: DEXTROSE 5% NACL 0.45% 1,000 ML IV SCH (12:08)
[2018-08-31] MEDS: ATORVASTATIN 40 MG TABLET PO SCH (20:19)
[2018-09-01] MEDS: DEXTROSE 5% NACL 0.45% 1,000 ML IV SCH (01:57)
[2018-09-01] MEDS: metroNIDAZOLE INJ 500 MG in PREMIX 1 EACH IV SCH ×2 (02:07→08:32)
[2018-09-01] MEDS: HEPARIN 5,000 UNIT/1 ML VIAL SUBCUT SCH (05:38)
[2018-09-01] MEDS: PROCHLORPERAZINE 10 MG TABLET PO SCH (05:38)
[2018-09-01] MEDS: CIPROFLOXACIN INJ 400 MG in PREMIX 1 EACH IV SCH (05:38)
[2018-09-01 05:51] LABS: Basophils % 0.3 % (0.0-0.8); Eosinophils # 0.2 10*3/uL (0.0-0.87); Eosinophils % 1.6 % (0.00-10.9); Hematocrit 33.8 VOL% (42.0-52.0); Hemoglobin 11.3 GM/DL (14.0-18.0); Immature Granulocytes % 0.8 %; Immature Granulocytes Absolute 0.07 #; Lymphocytes # 1.7 10*3/uL (1.4-4.0); Lymphocytes % 18.8 % (21.2-54.2); Mean Corpuscular HGB Conc 33.4 GM/DL (32-36); Mean Corpuscular Volume 95.8 FL (87-102); Mean Platelet Volume 9.1 FL (9.6-12.0); Monocytes % 20.3 % (1.7-12.7); Neutrophils % 58.2 % (38.7-73.9); Platelet Count 293 T/CUMM (130-400); Red Blood Count 3.53 MC/CUMM (3.8-5.5); Red Cell Distribution Width 14.3 % (9.3-17.3); White Blood Count 9.1 T/CUMM (4-12)
[2018-09-01 06:21] LABS: Albumin 2.9 G/DL (3.4-5.0); Bilirubin,Total 0.7 MG/DL (0.2-1.0); Calcium 8.1 MG/DL (8.5-10.1); Osmolality,Calculated 269.7 MOS/KG (273-304); Total Protein 6.4 G/DL (6.4-8.3)
[2018-09-01 06:23] LABS: Band Neutrophils 1 % (0-10); Eosinophils 2 % (0-10); Lymphocytes 11 % (20-55); Segmented Neutrophils 68 % (50-85); Total Cells Counted 100
[2018-09-01 06:24] LABS: Platelet Estimate Normal
[2018-09-01 06:25] LABS: Burr Cells 2+
[2018-09-01 08:05] VITALS: BP 152/88
[2018-09-01] MEDS: ASPIRIN EC 81 MG TABLET PO SCH (08:32)
[2018-09-01] MEDS: CITALOPRAM 20 MG TABLET PO SCH (08:32)
[2018-09-01] MEDS: METOPROLOL TARTRATE 50 MG TABLET PO SCH (08:33)
[2018-09-01] MEDS: LOSARTAN 50 MG TABLET PO SCH (08:33)
[2018-09-01] MEDS: ISOSORBIDE MONONITRATE 30 MG TABLET PO SCH (08:33)
[2018-09-01] MEDS: PANTOPRAZOLE 40 MG VIAL IV SCH (08:34)
[2018-09-01] MEDS: NON-FORMULARY MEDICATION (Lenalidomide [Revlimid] 25 MG) PO SCH (10:13)
[2018-09-02] MEDS ORDERED: DEXAMETHASONE 4 MG TABLET PO SCH (09:00)
[2018-09-03 05:10] LABS: Immunoglobulin A (Chem) 159 MG/DL (70-400); Immunoglobulin G (Chem) 663 MG/DL (700-1600); Immunoglobulin M (Chem) 22 MG/DL (40-230); Total Protein (Chem) 6.2 G/DL (6.4-8.3)
[2018-09-03 10:31] LABS: Albumin (SPE) 3.7 G/DL (3.2-5.3); Albumin (SPE) Rel % 58.9 %; Alpha 1 (SPE) 0.3 G/DL (0.1-0.4); Alpha 1 (SPE) Rel % 5.2 %; Alpha 2 (SPE) 0.7 G/DL (0.4-1.0); Beta (SPE) 0.7 G/DL (0.5-1.1); Gamma (SPE) 0.7 G/DL (0.7-1.7)
[2018-09-03 10:35] LABS: Gamma (SPE) Rel % 11.9 %
[2018-09-04 12:26] LABS: Immuno Free Light Chain Kappa 5.36 MG/DL (0.33-1.94); Immuno Free Light Chain Lambda 2.15 MG/DL (0.57-2.63); Immuno Free Light Chain Ratio 2.49 MG/DL (0.26-1.65)
== END 2018-09-01 10:25 | disposition home or self-care (01) | DRG 871 ==
LOC: N.ED 10:08 → SUATTDRO 12:22 → N.EDINP 12:22 → N.4E 15:42
PROVIDERS: ADMIT Internal Medicine; ATTEND Internal Medicine